=== PATIENT | male | born 1950 | race Two or more races ===

== ENCOUNTER 2019-01-27 05:10 | Day surgery (SDC) | payer OTHER ==
[~2019-01-27 05:10] MED LIST: FLEXERIL PO; LISINOPRIL10 MG PO; MOTRIN PO; TAMS0.4C PO
[2019-01-27] MEDS ORDERED: ULTRACET PO (09:33)
[2019-01-27] MEDS ORDERED: SURFAK240 M1 PO (09:34)
== END 2019-01-27 16:45 | disposition home or self-care (01) ==
LOC: CIR.AMB 05:10
DX: K40.90 Unilateral inguinal hernia, without obstruction or gangrene, not specified as recurrent (principal); K42.9 Umbilical hernia without obstruction or gangrene; D17.1 Benign lipomatous neoplasm of skin and subcutaneous tissue of trunk